=== PATIENT | female | born 1950 | race Two or more races ===

== ENCOUNTER 2018-02-18 08:10 | Outpatient (CLI) | payer OTHER ==
[~2018-02-18 08:10] MED LIST: ATACAND4 MG; AVELOX ABC PAC400 MG PO; CIPRO500 MG PO; FLAGYL ER750 MG PO; LIPITOR40 MG; PROZAC10 MG; SYNTHROID50 MCG
== END 2018-02-18 08:20 | disposition home or self-care (01) ==
LOC: RAD 08:10
DX: C67.1 Malignant neoplasm of dome of bladder (principal)

== ENCOUNTER 2018-05-13 11:01 | Outpatient (CLI) | payer OTHER | END 2018-05-13 11:11 | disposition home or self-care (01) | LOC: RAD 11:01 | DX: M77.30 Calcaneal spur, unspecified foot (principal) ==

== ENCOUNTER → 2018-05-13 | Outpatient (CLI) | payer OTHER | END | disposition home or self-care (01) | LOC: NUCLEAR 09:11 | DX: M81.0 Age-related osteoporosis without current pathological fracture (principal); E78.00 Pure hypercholesterolemia, unspecified; R07.89 Other chest pain; I67.89 Other cerebrovascular disease ==

== ENCOUNTER 2019-03-21 14:45 | Outpatient (CLI) | payer OTHER | END 2019-03-21 14:54 | disposition home or self-care (01) | LOC: SONOGRAMA 14:45 | DX: C67.1 Malignant neoplasm of dome of bladder (principal) ==

== ENCOUNTER 2020-04-12 15:01 | Outpatient (CLI) | payer OTHER | END 2020-04-12 19:00 | disposition home or self-care (01) | LOC: LAB 15:01 | PROVIDERS: ATTEND Radiology Diagnostic Radiology | DX: N20.0 Calculus of kidney (principal) ==

== ENCOUNTER 2020-05-20 10:04 | Outpatient (CLI) | payer OTHER | END 2020-05-20 10:21 | disposition home or self-care (01) | LOC: TOM 10:04 | PROVIDERS: ATTEND Urology | DX: C67.1 Malignant neoplasm of dome of bladder (principal); N39.8 Other specified disorders of urinary system | CPT/HCPCS: 74177; Q9965 ==

== ENCOUNTER 2021-04-07 07:29 | Outpatient (CLI) | payer OTHER | END 2021-04-07 08:00 | disposition home or self-care (01) | LOC: NUCLEAR 07:29 | PROVIDERS: ATTEND Internal Medicine | DX: I11.9 Hypertensive heart disease without heart failure (principal); M89.9 Disorder of bone, unspecified; M94.9 Disorder of cartilage, unspecified; E11.9 Type 2 diabetes mellitus without complications; E78.2 Mixed hyperlipidemia ==

== ENCOUNTER 2021-04-07 09:01 | Outpatient (CLI) | payer OTHER | END 2021-04-07 09:03 | disposition home or self-care (01) | LOC: RAD 09:01 | PROVIDERS: ATTEND Internal Medicine | DX: R07.9 Chest pain, unspecified (principal) ==